=== PATIENT | female | born 2000 | race Caucasian/White ===

== ENCOUNTER → 2021-07-04 08:12 | Outpatient (BNVA) | payer SELFPAY | PROVIDERS: Visit Provider Nurse Practitioner Women's Health | DX: N92.6 Irregular menstruation, unspecified (principal) | CPT/HCPCS: 81025 ==

== ENCOUNTER 2021-07-20 17:11 | Emergency (ER) | payer SELFPAY ==
[2021-07-20 18:01] VITALS: BP 115/75; PULSE 66; RESP 16; TEMP 36.8; O2SAT 96
[2021-07-20 18:04] VITALS: BP 121/72; PULSE 68; RESP 16; TEMP 36.8; O2SAT 96
[2021-07-20 18:55] LABS: Add Urine Microscopic? NO; Charge for UA Resulting for Rev
[2021-07-20 19:07] LABS: Bilirubin Urine Neg (Negative); Blood Urine Neg (Negative); Glucose Urine UA Norm (Normal); Ketones Urine Negative (Negative); Leukocyte Esterase Urine Negative (Negative); Nitrate Urine Negative (Negative); Protein Urine Neg (Negative); Urine Appearance Clear (CLEAR); Urine Color Straw (Yellow); Urobilinogen Urine Neg (Negative); pH Urine 7 (5-7)
--- NOTE | 2021-07-20 20:13 | USR_ITS ---
PROCEDURE INFORMATION: Exam: US , Limited Exam date and time: 07/20/2021 8:13 PM Age: 21 years old Clinical indication: Lmp or gestational age (in weeks): 9 w 2day; Antepartum complications; Bleeding; ; Additional info: Eval for bleeding TECHNIQUE: Imaging protocol: Real-time ultrasound of the maternal uterus with image documentation. Exam focused on the clinical indication. COMPARISON: US OB transvaginal [facility] 07/09/2021 8:16 AM FINDINGS: Gestation: Single intrauterine gestation. 4 mm yolk sac visualized. heart rate: 171 bpm. Placenta: No subchorionic hemorrhage. BIOMETRY: Estimated due date (AUA): 02/20/2022 Gestational age (AUA): 9 weeks 2 days [place] length: 2.57 cm MATERNAL: Cervix: Cervix is partially visualized and appears unremarkable. US/US OB limited [id number] IMPRESSION: 1. Single viable intrauterine gestation estimated at 9 weeks 2 days. 2. No abnormality identified.
[2021-07-20 20:31] LABS: Basophils % 0.4 %; Eosinophils # 0.1 10^3/uL (0.0-0.8); Eosinophils % 0.8 %; Hematocrit 41.5 % (37.0-47.0); Hemoglobin 14.2 g/dL (11.5-15.3); Lymphocytes # 2.8 10^3/uL (0.8-4.8); Lymphocytes % 25.5 %; Mean Corpuscular HGB Conc 34.2 g/dL (30.0-36.0); Mean Corpuscular Volume 93.5 fl (81-99); Mean Platelet Volume 9.5 fL (7.4-10.4); Monocytes # 0.6 10^3/uL (0.2-0.9); Monocytes % 5.3 %; Neutrophils # 7.57 10^3/uL (1.8-7.7); Neutrophils % 67.8 %; Nucleated Red Blood Cells % 0 %; Platelet Count 279 10^3/cmm (130-400); Red Blood Count 4.44 10^6/uL (4.1-5.3); Red Cell Distribution Width 12.3 % (12.1-15.1); White Blood Count 11.2 10^3/uL (4.0-10.0)
--- NOTE | 2021-07-20 21:07 | W.ED.GENADLT ---
HPI - General Adult General: Chief complaint: Vaginal Bleeding Stated complaint: 9 WKS AND SPOTTING Time Seen by Provider: 07/20/21 20:08 History of Present Illness: Patient is a 21-year-old female at 9 weeks 2 days presents emergency room with complaints of vaginal spotting x2 days. Patient tells me that she just noted spotting at home. Denies any passage of clots, regular contraction, worsening pelvic cramps. No other focal complaints at this time. Onset:2 days ago Duration:2 days Location:home Severity:mild Associated symptoms: Deny chest pain, dyspnea, nausea, rash, palpitations or vomiting Review of Systems Const: Denies: fever(s) or chills Eyes: Denies: change in vision ENMT: Denies: mouth pain Card: Denies: chest pain or palpitations Resp: Denies: dyspnea or non-productive cough GI: Denies: abdominal pain, nausea, vomiting or diarrhea : Reports: other (+vaginal spotting); Denies: dysuria Musc: Denies: extremity pain Skin/Breast: Denies: rash or new lesions Neuro: Denies: weakness in extremities Psych: Reports: other (Normal mood) [place]/Lymph: Denies: easy bruising PFSH ED PFSH: Medical History No pertinent past medical history neghx: htn,dm,thyroid,dvt/pe PCP: None Surgical History No pertinent past surgical history Family History Denies family history of Colon cancer Ovarian cancer Diabetes Heart disease Hypercholesteremia Breast cancer Hypertension Uterine cancer Thyroid disease Stroke Physical Exam Const: COMMON NORMALS: alert HENMT: COMMON NORMALS: atraumatic HEAD & SCALP: atraumatic MOUTH: moist mucous membranes not abnormal Eye: COMMON NORMALS: EOMs intact bilaterally and conjunctivae normal CONJUNCTIVA: Yes conjunctivae normal Neck/C-Spine: COMMON NORMALS: full ROM and supple Resp: COMMON NORMALS: normal respiratory effort and clear to auscultation bilaterally AUSCULTATION: clear to auscultation bilaterally Cardio: COMMON NORMALS: regular rate RATE: regular rate GI: COMMON NORMALS: Soft to palpation and non-tender PALPATION: Yes Soft to palpation : OTHER: Exam supervised by Marly business unit controller. External genitalia wnl. No erythema around cervical os, os closed, no discharge, no bleeding. Extremity: COMMON NORMALS: full ROM Neuro: SENSORIUM/ORIENTATION: Yes alert MOTOR EXAM: No Abnormal motor strength present and Other motor observations present (no focal motor deficits) Psych: COMMON NORMALS: speech normal SPEECH: Yes normal speech MOOD & AFFECT: Yes euthymic mood Course Vital Signs: Vital signs: Vital Signs Temperature 98.2 F 07/20/21 18:01 Pulse Rate 66 07/20/21 18:01 Respiratory Rate 16 07/20/21 18:01 Blood Pressure 115/75 07/20/21 18:01 Pulse Oximetry 96 07/20/21 18:01 MDM - General Adult Medical Decision Making 21-year-old female at 9 weeks 2 days presents emergency room with vaginal spotting x2 days. On exam, patient has no findings of vaginal bleeding or pools of blood. Ultrasound confirmed IUP with heart rate of 170s. H&H appears to be stable. Patient's Rh+. Patient has appoint with Dr. Cm on 07/27/2021 instructed patient to follow-up with Dr. Cm at this time. Disposition: Discharge. Patient counseled regarding diagnostic impression, treatment plan. Patient given ED strict return precautions to return for continuation, worsening, or development of new symptoms. Instructed to f/u w/ OB provider regarding symptoms today. Patient verbalized understanding. Lab Data : 07/20/21 20:26 07/20/21 21:02 Radiology Impressions Obstetrics Ultrasound 07/20/21 20:13 IMPRESSION: 1. Single viable intrauterine gestation estimated at 9 weeks 2 days. 2. No abnormality identified. Laboratory Results WBC 11.2 10^3/uL (4.0-10.0) H 07/20/21 20:26 RBC 4.44 10^6/uL (4.1-5.3) 07/20/21 20:26 Hgb 14.2 g/dL (11.5-15.3) 07/20/21 20:26 Hct 41.5 % (37.0-47.0) 07/20/21 20:26 MCV 93.5 fl (81-99) 07/20/21 20:26 MCH 32.0 pg (28.0-34.0) 07/20/21 20: MCHC 34.2 g/dL (30.0-36.0) 07/20/21 20: RDW 12.3 % (12.1-15.1) 07/20/21 20:26 Plt Count 279 10^3/cmm (130-400) 07/20/21 20:26 MPV 9.5 fL (7.4-10.4) 07/20/21 20: Neut % (Auto) 67.8 % 07/20/21 20:26 Lymph % (Auto) 25.5 % 07/20/21 20:26 [place] % (Auto) 5.3 % 07/20/21 20: Eos % (Auto) 0.8 % 07/20/21 20: Baso % (Auto) 0.4 % 07/20/21 20: Neut # (Auto) 7.57 10^3/uL (1.8-7.7) 07/20/21 20: Lymph # (Auto) 2.8 10^3/uL (0.8-4.8) 07/20/21 20:26 [place] # (Auto) 0.6 10^3/uL (0.2-0.9) 07/20/21 20: Eos # (Auto) 0.1 10^3/uL (0.0-0.8) 07/20/21 20: Baso # (Auto) 0.0 10^3/uL (0.0-0.1) 07/20/21 20: Nucleated RBC % (auto) 0 % 07/20/21 20: Nucleated RBCs # 0.0 /100WBC 07/20/21 20:26 Sodium Cancelled 07/20/21 20:26 Potassium Cancelled 07/20/21 20:26 Chloride Cancelled 07/20/21 20:26 Carbon Dioxide Cancelled 07/20/21 20:26 Anion Gap Cancelled 07/20/21 20:26 BUN Cancelled 07/20/21 20:26 Creatinine Cancelled 07/20/21 20:26 GFR Calculation Cancelled 07/20/21 20:26 Glucose Cancelled 07/20/21 20:26 Calculated Osmolality Cancelled 07/20/21 20:26 Calcium Cancelled 07/20/21 20:26 Total Bilirubin Cancelled 07/20/21 20:26 AST Cancelled 07/20/21 20:26 ALT Cancelled 07/20/21 20:26 Alkaline Phosphatase Cancelled 07/20/21 20:26 Total Protein Cancelled 07/20/21 20:26 Albumin Cancelled 07/20/21 20:26 Globulin Cancelled 07/20/21 20:26 Ser , Semi-Qnt Cancelled 07/20/21 20:26 Urine Color Straw (Yellow) 07/20/21 18:17 Urine Appearance Clear (CLEAR) 07/20/21 18:17 Urine pH 7 (5-7) 07/20/21 18:17 Ur Specific [place] 1.010 (1.005-1.030) 07/20/21 18:17 Urine Protein Neg (Negative) 07/20/21 18:17 Urine Glucose (UA) Norm (Normal) 07/20/21 18:17 Urine Ketones Negative (Negative) 07/20/21 18:17 Urine Blood Neg (Negative) 07/20/21 18:17 Urine Nitrate Negative (Negative) 07/20/21 18:17 Urine Bilirubin Neg (Negative) 07/20/21 18:17 Urine Urobilinogen Neg mg/dL (Negative) 07/20/21 18:17 Ur Leukocyte Esterase Negative (Negative) 07/20/21 18:17 Blood Type O Positive 07/20/21 21:02 Rho(D) Type Positive 07/20/21 21:02 Imaging Data Other Imaging: Radiologist's impression: [address] [address] Ultrasound Report Signed Patient: Gris Stephenson Unit #: [id number] : 2000 Age/Sex: 21 / F ADM Date: 07/20/21 Loc: ER Room/Bed: Attending Dr: Ordering Provider/Ordering MD: Adam Peña MD Date of Service: 07/20/21 Procedure(s): US OB limited [id number] Accession Number(s): [id number] Report Number: [id number] PROCEDURE INFORMATION: Exam: US , Limited Exam date and time: 07/20/2021 8:13 PM Age: 21 years old Clinical indication: Lmp or gestational age (in weeks): 9 w 2day; Antepartum complications; Bleeding; ; Additional info: Eval for bleeding TECHNIQUE: Imaging protocol: Real-time ultrasound of the maternal uterus with image documentation. Exam focused on the clinical indication. COMPARISON: US OB transvaginal [facility]CC 07/09/2021 8:16 AM FINDINGS: Gestation: Single intrauterine gestation. 4 mm yolk sac visualized. heart rate: 171 bpm. Placenta: No subchorionic hemorrhage. BIOMETRY: Estimated due date (AUA): 02/20/2022 Gestational age (AUA): 9 weeks 2 days [place]-Rump length: 2.57 cm MATERNAL: Cervix: Cervix is partially visualized and appears unremarkable. US/US OB limited [id number] IMPRESSION: 1. Single viable intrauterine gestation estimated at 9 weeks 2 days. 2. No abnormality identified. ? Dictated By: Bacilio Moser Signed By: Bacilio Moser Signed Date/Time: 07/20/212118 DD/ 12 Discharge Plan Discharge Patient Disposition: Home Clinical Impression: Vaginal bleeding Condition: Stable Prescriptions: No Action prenat.vits,etelvina,chq-xoze-pylqn Tablet 1 tab PO DAILY 0RF Discharge Orders: Discharge ED (Routine); Ordered 07/20/21 Ordered By: Adam Peña Referrals: Bobo Washington MD [Primary Care Provider] - Discharge Diet: Advance as tolerated Discharge Activity: Increase activity as tolerated Patient Instructions: Abnormal (Dysfunctional) Uterine Bleeding (ED), Non-Threatening First Trimester Vaginal Bleed (ED) Activity Restrictions/Additional Instructions: Our case management specialist will have you follow-up with Dr. Carrero in the next few days. You would be expected to have a phone call with our case management specialist who will put you on the schedule. Come back to the emergency room if there is any significant head cramps, regular contraction, worsening bleeding, passage of clots, or any new or concerning complaints Coding Level of Care Code ED Certified Pest Control Technician for [employer] Fwd Exam Comprehensive
[2021-07-20 21:50] LABS: Alanine Aminotransferase 9 U/L (0-33); Albumin Level 4.1 g/dL (3.5-5.2); Alkaline Phosphatase 48 IU/L (35-105); Anion Gap 14.5 (5-19); Aspartate Amino Transferase 12 U/L (0-32); Blood Urea Nitrogen 10 mg/dL (6-20); Calcium 8.5 mg/dL (8.5-10.5); Carbon Dioxide 24 mmol/L (22-29); Chloride 100 mmol/L (98-107); Globulin 2.5 g/dL (1.3-4.6); Glomerular Filtration Rate 104.6 mL/min (90-130); Glucose 78 mg/dL (65-115); Osmolality Calculated 278 mOsm/kg (285-295); Potassium 3.5 mmol/L (3.5-5.1); Sodium 135 mmol/L (136-145); Total Bilirubin 0.2 mg/dL (0.15-1.2); Total Protein 6.6 g/dL (6.6-8.7)
[2021-07-21 03:44] VITALS: BP 121/72; PULSE 68; RESP 16; TEMP 36.8; O2SAT 96
== END 2021-07-20 21:22 | disposition home or self-care (01) ==
PROVIDERS: Nurse Practitioner Family; Emergency Provider Emergency Medicine; PCP Obstetrics & Gynecology
DX: O46.91 Antepartum hemorrhage, unspecified, first trimester (principal); Z3A.09 9 weeks gestation of pregnancy
CPT/HCPCS: 76815; 80053; 81003; 84702; 85025; 86900; 99283

== ENCOUNTER → 2021-08-02 13:34 | Outpatient (BNVA) | payer SELFPAY | PROVIDERS: Visit Provider Obstetrics & Gynecology | DX: Z34.01 Encounter for supervision of normal first pregnancy, first trimester | CPT/HCPCS: 80307; 81000; 86592; 86762; 86803; 86850; 87086; 87340; 87806 ==

== ENCOUNTER → 2021-08-31 13:06 | Outpatient (BNVA) | payer SELFPAY | PROVIDERS: Visit Provider Obstetrics & Gynecology | DX: Z34.80 Encounter for supervision of other normal pregnancy, unspecified trimester (principal); Z34.02 Encounter for supervision of normal first pregnancy, second trimester | CPT/HCPCS: 81000; 87491; 87591; 88175 ==

== ENCOUNTER → 2021-10-04 15:33 | Outpatient (BNVA) | payer SELFPAY | PROVIDERS: Visit Provider Obstetrics & Gynecology | DX: Z36.89 Encounter for other specified antenatal screening (principal) | CPT/HCPCS: 76805 ==

== ENCOUNTER → 2021-10-08 15:18 | Outpatient (BNVA) | payer SELFPAY | PROVIDERS: Visit Provider Obstetrics & Gynecology | DX: Z34.80 Encounter for supervision of other normal pregnancy, unspecified trimester (principal) | CPT/HCPCS: 81000 ==

== ENCOUNTER → 2021-11-02 11:44 | Outpatient (BNVA) | payer SELFPAY | PROVIDERS: Visit Provider Obstetrics & Gynecology | DX: Z34.01 Encounter for supervision of normal first pregnancy, first trimester (principal) | CPT/HCPCS: 81000; 82950 ==

== ENCOUNTER → 2021-11-20 14:17 | Outpatient (BNVA) | payer SELFPAY | PROVIDERS: Visit Provider Obstetrics & Gynecology | DX: Z34.02 Encounter for supervision of normal first pregnancy, second trimester (principal) | CPT/HCPCS: 81000; 85027 ==

== ENCOUNTER → 2021-12-14 15:18 | Outpatient (BNVA) | payer SELFPAY | PROVIDERS: Visit Provider Obstetrics & Gynecology | DX: Z34.80 Encounter for supervision of other normal pregnancy, unspecified trimester (principal) | CPT/HCPCS: 81000 ==

== ENCOUNTER → 2021-12-26 15:21 | Outpatient (BNVA) | payer SELFPAY | PROVIDERS: Visit Provider Obstetrics & Gynecology | DX: O40.3XX0 Polyhydramnios, third trimester, not applicable or unspecified (principal); Z3A.33 33 weeks gestation of pregnancy | CPT/HCPCS: 76816 ==

== ENCOUNTER → 2021-12-28 15:00 | Outpatient (BNVA) | payer SELFPAY | PROVIDERS: Visit Provider Obstetrics & Gynecology | DX: Z34.90 Encounter for supervision of normal pregnancy, unspecified, unspecified trimester (principal) | CPT/HCPCS: 81000 ==

== ENCOUNTER → 2022-01-18 13:53 | Outpatient (BNVA) | payer SELFPAY | PROVIDERS: Visit Provider Obstetrics & Gynecology | DX: O40.3XX0 Polyhydramnios, third trimester, not applicable or unspecified (principal); Z3A.36 36 weeks gestation of pregnancy | CPT/HCPCS: 76816 ==

== ENCOUNTER → 2022-01-24 13:02 | Outpatient (BNVA) | payer SELFPAY | PROVIDERS: Visit Provider Obstetrics & Gynecology | DX: Z34.00 Encounter for supervision of normal first pregnancy, unspecified trimester (principal) | CPT/HCPCS: 81000; 87081 ==

== ENCOUNTER → 2022-02-01 14:29 | Outpatient (BNVA) | payer SELFPAY | PROVIDERS: Visit Provider Obstetrics & Gynecology | DX: Z34.00 Encounter for supervision of normal first pregnancy, unspecified trimester (principal) | CPT/HCPCS: 81000 ==

== ENCOUNTER → 2022-02-08 10:15 | Outpatient (BNVA) | payer SELFPAY | PROVIDERS: Visit Provider Obstetrics & Gynecology | DX: Z34.00 Encounter for supervision of normal first pregnancy, unspecified trimester (principal) | CPT/HCPCS: 81000 ==

== ENCOUNTER → 2022-02-12 12:54 | Outpatient (BNVA) | payer SELFPAY | PROVIDERS: Visit Provider Obstetrics & Gynecology | DX: Z34.00 Encounter for supervision of normal first pregnancy, unspecified trimester (principal) | CPT/HCPCS: 76816; 76819; 81000 ==

== ENCOUNTER → 2022-02-19 08:54 | Outpatient (BNVA) | payer SELFPAY | PROVIDERS: Visit Provider Obstetrics & Gynecology | DX: Z34.00 Encounter for supervision of normal first pregnancy, unspecified trimester (principal) | CPT/HCPCS: 81000 ==

== ENCOUNTER 2022-02-26 07:55 | Inpatient (IN) | payer SELFPAY ==
[2022-02-26] VITALS (24 sets, daily range): BP systolic 109–143; BP diastolic 59–87; PULSE 65–82; RESP 16; TEMP 35.7–37.2; BMI 30.1
--- NOTE | 2022-02-26 08:25 | PM.OPHPUD ---
Labor & Delivery H&P Update Date of Procedure: February 27, 2022 Date H&P Performed: 02/19/22 H&P update information: I have reviewed H&P completed within last 30 days, I have examined patient prior to procedure and No changes to prior documentation Admission Diagnosis:
[2022-02-26 08:59] LABS: Basophils % 0.3 %; Eosinophils # 0.1 10^3/uL (0.0-0.8); Eosinophils % 0.8 %; Hematocrit 38.8 % (37.0-47.0); Lymphocytes # 1.4 10^3/uL (0.8-4.8); Lymphocytes % 15.7 %; Mean Corpuscular HGB Conc 33.5 g/dL (30.0-36.0); Mean Corpuscular Hemoglobin 31.9 pg (28.0-34.0); Mean Corpuscular Volume 95.1 fl (81-99); Mean Platelet Volume 11.1 fL (7.4-10.4); Monocytes # 0.7 10^3/uL (0.2-0.9); Monocytes % 7.6 %; Neutrophils # 6.52 10^3/uL (1.8-7.7); Neutrophils % 74.8 %; Nucleated Red Blood Cells % 0 %; Platelet Count 206 10^3/cmm (130-400); Red Blood Count 4.08 10^6/uL (4.1-5.3); Red Cell Distribution Width 12.7 % (12.1-15.1); White Blood Count 8.7 10^3/uL (4.0-10.0)
[2022-02-26] MEDS: miSOPROStol 100 mcg tablet 25 MCG VAGINAL ×2 (09:18→17:16)
--- NOTE | 2022-02-26 16:42 | PM.PN ---
Subjective Subjective: Mrs. Juan 21-year-old female with an estimated gestational age of 40+6 weeks. Vitals/I&O/Wt Last Vital Signs Temp 97.2 F L 02/27/22 06:24 Pulse 82 02/27/22 06:22 Resp 16 02/27/22 02:01 BP 132/61 02/27/22 06:22 O2 Del Method 02/26/22 08:16 02/26/22 02/26/22 02/27/22 14:59 22:59 06:59 Intake Total 499.5 / 499.5 500.5 / 1000.0 Balance 499.5 / 499.5 500.5 / 1000.0 Weight last 48 hrs Weight 89.811 kg Weight 89.811 kg Physical Exam Narrative: GA: Alert and oriented ?3. Lungs: Clear to auscultation bilaterally. Heart: Regular rhythm and rate. Abdomen: Gravid, full the height equals dates, nontender. TRAINING OFFICER: SVE; dilation: 2-3 cm, effacement: 25%, station: -1, presentation: Cephalic, membranes: Intact memory. Extremities: no edema, no cyanosis, no calves pain. heart tracing: Basal rate: 140's bpm, Variability: moderate, Accelerations: present, Decelerations: absent, Contraction: q4-8min. Data : 02/26/22 08:27 A&P Assessment and plan (1) Term : Mrs. Stephenson 21-year-old female G1, P0 with an EGA at 40+6 weeks. Came to labor and delivery referring contractions. She was originally scheduled for an elective induction at 41 weeks. Came to labor and delivery referring contractions but no cervical dilation no change occurs since she came to labor and delivery. She was counseled regarding misoprostol for cervical ripening. She is declining the use of oxytocin and would like to progress as natural as possible. heart tracing category 1. scalp stimulation good. Anticipate vaginal delivery Status: Acute Plan Continuous monitoring. Misoprostol intravaginal for cervical ripening Attestations Medical Necessity Statement*: In my professional opinion per admitting diagnosis Coding Level of Care Code Acute Business Development Consultant for [employer] Fwd Diagnoses Term Z34.90
[2022-02-26] MEDS: ondansetron 2 mg/ML SDV 2 mL 4 MG IVP (19:39)
[2022-02-26] MEDS: lactated ringers 1,000 ML 999 ML IV (21:35)
[2022-02-27] VITALS (31 sets, daily range): BP systolic 106–164; BP diastolic 58–88; PULSE 75–111; RESP 16; TEMP 36.2–37.2; O2SAT 98
[2022-02-27] MEDS: ondansetron 2 mg/ML SDV 2 mL 4 MG IVP (02:01)
[2022-02-27] MEDS: metoclopramide 5 mg/mL SDV 2 mL 10 MG IV (03:18)
[2022-02-27] MEDS: dextrose 5%-lactated ringers 1,000 ML 125 ML IV (03:20)
[2022-02-27] MEDS: lidocaine 2% INJ 20 mL INJECTION ×2 (07:10→07:31)
--- NOTE | 2022-02-27 08:08 | P.OP_ITS ---
Operative Report Date of procedure: February 27, 2022 Pre-op diagnosis: Term Post-op diagnosis: Term delivered Third-degree laceration Post-op findings: Third-degree laceration Procedure done: Spontaneous vaginal delivery. Third degree laceration repair. Surgeon: Bobo Washington MD Estimated blood loss (mL): 500 Complications: Third degree perineal laceration Procedure: The patient was noted to be complete and pushing, so was placed in the dorsal lithotomy position, prepped and draped in the usual sterile fashion for a vaginal delivery. Pt. Noted not to have epidural anesthesia. At 0704 the patient delivered a viable 40+6 weeks male infant weighing 4390 g with scores of 8 and 9 at one and five minutes, respectively. The vertex was delivered spontaneously over intact.. The patient was asked to push and the head delivered spontaneously in the ANGEL position, over an intact perineum. A nuchal cord was checked and 1 noted, and relieved around head as necessary and compound presentation. The anterior shoulder delivered easily and the posterior shoulder followed. The remainder of the infant was easily delivered and the oropharynx and nasopharynx was bulb suctioned. The was noted to have spontaneous cry and spontaneous movement of all four extremities. The cord was clamped x 2 and cut and noted to have 2 arteries and one vein. The was passed to the mother's abdomen where nursing personnel were in attendance. Cord blood sample was then obtained. The placenta delivered intact spontaneously and the uterus w as explored. The patient declined the use of Pitocin in the IV bag to firm the uterus. Examination of the cervix and vaginal vault did not reveal any lacerations. A vaginal pack was then placed. Examination of the perineum showed third-degree laceration. The third-degree laceration was repaired with 2-0 Vicryl and 3-0 Vicryl in the normal fashion in a running non locking fashion to reapproximate the laceration in layers. Allis clamps were used to grasp the two ends of the external anal sphincter. Four interrupted sutures were placed posteriorly, inferiorly, superiorly and anteriorly bringing the external sphincter together tying the sutures in order. Then the perineal body and posterior vaginal wall reconstruction was repaired like a second degree episiotomy repair plicating the transverse perineal muscle, placating the bulbocarvernosus muscle and closing the posterior vaginal wall connective tissue and mucosa. The vaginal pack was then removed. The patient tolerated this procedure well, and recovered in L&D with her in their LDR room. All sponge and needle counts were correct.
[2022-02-27] MEDS: prenatal vitamin Capsule 1 CAP PO (09:56)
[2022-02-27] MEDS: ibuprofen 800 mg tablet PO ×3 (09:56→20:51)
[2022-02-27] MEDS: docusate sodium 100 mg Capsule PO (09:56)
[2022-02-27] MEDS: lanolin oint 7 gm 1 APPLIC TOPICAL (11:15)
[2022-02-27] MEDS: benzocaine-menthol 78 gm Canister 1 SPRAY TOPICAL (11:15)
--- NOTE | 2022-02-27 11:43 | PC.NURSE ---
Got pt up to bathroom, upon sitting on the toilet pt began to get dizzy. CAMFA remained with pt at all times until dizziness subsided. Helped pt up to walk back to bed, pt got dizzy again. CAMFA stood beside pt to assist until dizziness subsided. Helped pt back to bed. Pt stated man laying down has already helped a ton . Bed rails up x2, call light in reach, bed in lowest position, pillows positioned for comfort. Pt tolerated well.
[2022-02-27] MEDS: acetaminophen 325 mg Tablet 650 MG PO (14:49)
--- NOTE | 2022-02-27 14:50 | PC.NURSE ---
administered Ibuprofen 800 mg at 1450. The barcode would not scan. Pt stated she had no allergies, verified name and date of , verified medication against mar x3, scanned pt arm band, both ID's match.
[2022-02-27 20:05] LABS: Hematocrit 27.1 % (37.0-47.0); Hemoglobin 8.8 g/dL (11.5-15.3); Mean Corpuscular HGB Conc 32.5 g/dL (30.0-36.0); Mean Corpuscular Hemoglobin 31.9 pg (28.0-34.0); Mean Corpuscular Volume 98.2 fl (81-99); Mean Platelet Volume 11.1 fL (7.4-10.4); Platelet Count 196 10^3/cmm (130-400); Red Blood Count 2.76 10^6/uL (4.1-5.3); Red Cell Distribution Width 13.1 % (12.1-15.1); White Blood Count 13.6 10^3/uL (4.0-10.0)
[2022-02-28 04:00] VITALS: BP 114/72; PULSE 76; RESP 16; O2SAT 98
[2022-02-28] MEDS: acetaminophen 325 mg Tablet 650 MG PO (07:22)
[2022-02-28] MEDS: docusate sodium 100 mg Capsule PO (09:57)
[2022-02-28] MEDS: ibuprofen 800 mg tablet PO (09:57)
[2022-02-28] MEDS: prenatal vitamin Capsule 1 CAP PO (09:57)
--- NOTE | 2022-02-28 10:46 | P.DS_ITS ---
Discharge Providers EMERGENCY SERVICE WORKER Date of Admission: 02/26/22 16:25 Date of Discharge: 02/28/22 Attending Provider at Admission: Bobo Washington MD Attending Provider at Discharge: Bobo Washington MD Primary EMERGENCY SERVICE WORKER: Bobo Washington MD Diagnoses at Discharge Discharge Diagnosis (1) Term delivered: Status: Acute (2) Third degree perineal laceration during delivery with more than 50% tear of external anal sphincter: Status: Acute Reason for Visit Reason for Visit: Contractions Hospital Course Hospital Course Mrs. Stephenson 21-year-old female with an estimated gestational age of 40 weeks +6 days, admitted to labor and delivery with a chief complaint of contractions. She had been scheduled for elective induction for 41 weeks. Misoprostol was given for cervical ripening. She then progressed to have a spontaneous vaginal delivery without epidural anesthesia. She delivered a male infant with a birthweight of 4390 g Apgars 8/9. Vaginal delivery complicated with third-degree laceration. Third-degree laceration was repaired in the usual manner. Overnight observation was uneventful. Tolerating diet well. Ambulating without difficulty. She is after vital hemodynamically stable day 1. She is breast-feeding. Refers she plans to use condoms for contraception. Information Peripartum Data: Infant Delivery Method: Vaginal Physical Exam Narrative: GA; alert and oriented x 3 HEENT: normal Breasts: engorged Nipples - skin intact Lungs; clear to auscultation Heart: regular rhythm, no murmurs. Abd: Appropriately tender. BS+. Uterine fundus below umbilicus. No Fundal Tenderness. Perineum: normal lochia. Extremities: no edema, no cyanosis, no tenderness. History History History 1 Term Miscarriages/Ectopic Living Children Discharge Data Studies Completed and Pending Laboratory Results WBC 13.6 10^3/uL (4.0-10.0) H 02/27/22 19:30 RBC 2.76 10^6/uL (4.1-5.3) L 02/27/22 19:30 Hgb 8.8 g/dL (11.5-15.3) L 02/27/22 19:30 Hct 27.1 % (37.0-47.0) L 02/27/22 19:30 MCV 98.2 fl (81-99) 02/27/22 19:30 MCH 31.9 pg (28.0-34.0) 02/27/22 19:30 MCHC 32.5 g/dL (30.0-36.0) 02/27/22 19:30 RDW 13.1 % (12.1-15.1) 02/27/22 19:30 Plt Count 196 10^3/cmm (130-400) 02/27/22 19:30 MPV 11.1 fL (7.4-10.4) H 02/27/22 19:30 Neut % (Auto) 74.8 % 02/26/22 08:27 Lymph % (Auto) 15.7 % 02/26/22 08:27 [place] % (Auto) 7.6 % 02/26/22 08:27 Eos % (Auto) 0.8 % 02/26/22 08: Baso % (Auto) 0.3 % 02/26/22 08:27 Neut # (Auto) 6.52 10^3/uL (1.8-7.7) 02/26/22 08:27 Lymph # (Auto) 1.4 10^3/uL (0.8-4.8) 02/26/22 08:27 [place] # (Auto) 0.7 10^3/uL (0.2-0.9) 02/26/22 08:27 Eos # (Auto) 0.1 10^3/uL (0.0-0.8) 02/26/22 08:27 Baso # (Auto) 0.0 10^3/uL (0.0-0.1) 02/26/22 08:27 Nucleated RBC % (auto) 0 % 02/26/22 08:27 Nucleated RBCs # 0.0 /100WBC 02/26/22 08:27 Vitals Last Vital Signs Temp 97.7 F 02/27/22 11:33 Pulse 76 02/28/22 04:00 Resp 16 02/28/22 04:00 BP 114/72 02/28/22 04:00 Pulse Ox 98 02/28/22 04:00 O2 Del Method 02/28/22 04:00 Discharge Plan Discharge Patient Disposition: Home Condition: Stable Prescriptions: New docusate sodium [Colace] 100 mg capsule 100 mg PO BID Qty: 60 0RF ferrous sulfate [Iron (ferrous sulfate)] 325 mg (65 mg iron) tablet 325 mg PO BID Qty: 60 0RF acetaminophen 325 mg capsule 325 mg PO Q4H PRN (Reason: fever or pain) Qty: 60 0RF ibuprofen 800 mg tablet 800 mg PO TID PRN (Reason: pain) Qty: 60 0RF Continued prenat.vits,etelvina,ptu-nfhe-bjeud Tablet 1 tab PO DAILY Discharge Orders: Discharge Order (Routine); Ordered 02/28/22 Ordered By: Bobo Washington Discharge Diet: Soft Mechanical Discharge Activity: Limit activity as instructed Patient Instructions: Depression (DC), Bleeding (DC), Preeclampsia and Eclampsia After Delivery (GEN), Hemorrhage (DC), OB Discharge Report, OB Food/Drug Interaction Guide, OB Care at Home, Opioid Safety, OB Home Care, OB Vaginal Deliveries - [facility] Activity Restrictions/Additional Instructions: 1. Please call [facility] on next working day to make your appointment in 6 weeks. 2. Please stay home until you come back to the clinic on first post-operative check up. 3. Please follow instructions on your medications CAREFULLY. 4. If you have abdominal incision, do not cover it unless dressing is necessary because of drainage. OK to shower, but avoid bath. Leave steri-strips until they fall off. If they are still on one week after surgery, you may remove them. 5. If you had vaginal surgery or vaginal repair, Dr. Washington may instruct you to take SITZ bath. 6. Yellow, blood tinged odorous vaginal discharge is usually normal after hysterectomy or vaginal surgeries. 7. No sexual intercourse, tampons, or douches until you are completely released from the post-operative care. 8. Avoid constipation by eating right and maybe using some Metamucil or Milk of Magnesia. 9. All prescription refills are given during the working hours. Please do no w ait till it runs out. Call the clinic at [phone] before your medication runs out. The clinic will get in touch with your doctor to prescribe medications if necessary. 10. Please remain within 40 mile radius from our hospital because emergencies do happen now and then during the post-operative period. 11. If you have stairs at home, take one step at a time slowly and minimize the number of trips. It helps to stay in one floor for the next few days. No lifting except what you can lift by one hand until you are released from the post-operative care. 12. Driving is discouraged until you are well healed. It may be 3-4 weeks before you feel strong enough to drive. You should be able to turn and look through the rear window without pain and you should be able to push the brake pedal very hard without pain before you drive. No fast rules, but SAFETY should be your primary concern. DO NOT drive if you are on sedating medications such as narcotics. 13. Call the clinic (during working hours) to make urgent appointment or go to the Emergency room, if any of the following occurs: i. Vaginal bleeding becomes heavy, more than a period. ii. Incision becomes red and sore, or drains pus. iii. Your temperature is over 100.4 or you have chill. iv. IV site becomes red and swollen (a little ``knot?? is usually OK) v. Persistent nausea and vomiting vi. Persistent constipation or diarrhea vii. Rash or allergic reaction to medications. Discharge Attestations EMERGENCY SERVICE WORKER Time Spent in Discharge Care*: greater than 30 min Coding Level of Care Code Acute Route Aide for [facility] Fwd Diagnoses Term delivered O80 Third degree perineal laceration during delivery with more than 50% tear of external anal sphincter O70.22
[2022-02-28 16:31] VITALS: BP 127/77; PULSE 88; RESP 18; TEMP 36.6; O2SAT 98
== END 2022-02-28 14:22 | disposition home or self-care (01) | DRG 768 ==
LOC: OPOB 07:55 → OBGYN 07:55
PROVIDERS: Admitting Provider Obstetrics & Gynecology; Visit Provider Obstetrics & Gynecology
DX: O36.63X0 Maternal care for excessive fetal growth, third trimester, not applicable or unspecified (principal); Z37.0 Single live birth; O70.22 Third degree perineal laceration during delivery, IIIb; O40.3XX0 Polyhydramnios, third trimester, not applicable or unspecified; Z3A.40 40 weeks gestation of pregnancy
CPT/HCPCS: 36415; 59025; 59409; 85025; 85027; 99211; G0378; J2405; J2765